=== PATIENT | female | born 1975 | race African-American/Black ===

== ENCOUNTER 2023-08-24 11:05 | Emergency (ER) | payer MEDICAID ==
[~2023-08-24] VITALS: Ht 167.6 cm; Wt 91.0 kg
[2023-08-24 11:10] VITALS: TEMP 98.2; O2SAT 98
[2023-08-24] MEDS ORDERED: IOHEXOL-350 100 ML BOTTLE ONE (11:45)
[2023-08-24 11:58] LABS: EOSINOPHILS % 3.3 % (0.0-5.0); HEMOGLOBIN. 15.7 g/dL (12.0-16.0); LYMPHOCYTES % 41.9 % (20.0-50.0); MEAN CORPUSCULAR HEMOGLOBIN 30.4 pg (28.0-32.0); MEAN CORPUSCULAR HGB CONC 32.8 g/dL (31.0-37.0); MEAN CORPUSCULAR VOLUME 92.8 fL (81.0-99.0); MEAN PLATELET VOLUME 9.2 fl (7.4-10.4); MONOCYTES % 11.4 % (2.0-8.0); NEUTROPHILS % 42.4 % (40.0-76.0); PLATELET 141 x1000/uL (130-400); RED BLOOD CELL COUNT 5.18 mill/uL (4.2-5.4); RED CELL DISTRIBUTION WIDTH 16.7 % (11.6-14.6); WHITE BLOOD COUNT 5.5 x1000/uL (4.5-11.0)
[2023-08-24 12:00] VITALS: BP 120/79; PULSE 81; RESP 17
[2023-08-24 12:02] LABS: PROTHROMBIN TIME 10.5 sec (9.6-11.0)
[2023-08-24 12:10] LABS: CHLORIDE 109 mEq/L (98-107); INDEX HEMOLYSI 2 (1-3); INDEX ICTERIC 1 (1-4); INDEX LIPEMIC 1 (1-3); POTASSIUM 3.4 mEq/L (3.5-5.1); SODIUM 144 mEq/L (136-145)
[2023-08-24 12:11] LABS: HCG SCREEN NEGATIVE
[2023-08-24 12:20] LABS: ALANINE AMINOTRANSFERASE 127 IU/L (13-61); ALBUMIN 4.1 g/dL (3.4-5.0); ASPARTATE AMINOTRANSFERASE 95 IU/L (15-37); BILIRUBIN TOTAL 0.4 mg/dL (0.1-1.0); CALCIUM 9.1 mg/dL (8.5-10.1); CARBON DIOXIDE 29 mEq/L (21-32); CREATININE 1.1 mg/dL (0.6-1.3); GLUCOSE 89 mg/dL (70-105); PROTEIN TOTAL 8.1 g/dL (6.0-8.3); TROPONIN I HIGH SENSITIVITY 6 ng/L (<54); UREA NITROGEN BLOOD 6 mg/dL (7-21)
[2023-08-24] MEDS ORDERED: ISON300T19 PO (12:42)
[2023-08-24] MEDS ORDERED: MONT-39 PO (12:42)
[2023-08-24] MEDS ORDERED: BUDE6.9H IH (12:42)
[2023-08-24] MEDS ORDERED: ALBU18HF2 INH (12:42)
[2023-08-24] MEDS ORDERED: BICT1TAB PO (12:42)
[2023-08-24] MEDS ORDERED: PY25 PO (12:42)
== END 2023-08-24 13:00 | disposition left against medical advice (07) ==
LOC: ER 11:05
DX: R53.1 Weakness (principal); R79.89 Other specified abnormal findings of blood chemistry; R51.9 Headache, unspecified; Z88.2 Allergy status to sulfonamides
CPT/HCPCS: 99285; 70496; 71045; 80053; 84703; 85025; 85610; 84484; 36415; 70498; 93005; 70450; Q9967